=== PATIENT | male | born 1955 | race Caucasian/White ===

== ENCOUNTER 2018-08-18 04:16 | Emergency (ER) | payer OTHER ==
[2018-08-18 04:54] LABS: ADD MAN DIFF? NO; BASOPHIL # 0.1 10^3/ul (0.0-0.1); BASOPHILS % 0.5 % (0.0-2.0); EOSINOPHILS # 0.1 10^3/ul (0.0-0.5); HEMATOCRIT 42.6 % (42.0-52.0); HEMOGLOBIN 14.4 g/dl (14.0-18.0); LYMPHOCYTES # 2.7 10^3/ul (0.8-2.9); LYMPHOCYTES % 24.2 % (15.0-51.0); MEAN CORPUSCULAR HEMOGLOBIN 30.2 pg (29.0-33.0); MEAN CORPUSCULAR HGB CONC 33.8 g/dl (32.0-37.0); MEAN CORPUSCULAR VOLUME 89.3 fl (82.0-101.0); MEAN PLATELET VOLUME 9.5 fl (7.4-10.4); MONOCYTE # 0.6 10^3/ul (0.3-0.9); MONOCYTES % 5.3 % (0.0-11.0); NEUTROPHIL # 7.5 10^3/ul (1.6-7.5); NEUTROPHILS % 68.5 % (39.0-77.0); PLATELET COUNT 250 10^3/UL (140-415); RED BLOOD COUNT 4.77 10^6/ul (4.70-6.10); RED CELL DISTRIBUTION WIDTH 12.7 % (11.5-14.5)
[2018-08-18] MEDS: HYDROmorphONE 2 MG/ML SYG IV (04:57)
[2018-08-18] MEDS: ONDANSETRON 4 MG INJ IV (04:58)
[2018-08-18] MEDS ORDERED: DIPHENHYDRAMINE 50 MG INJ (05:01)
[2018-08-18 05:19] LABS: ALANINE AMINOTRANSFERASE 76 IU/L (13-69); ALBUMIN 4.3 g/dl (3.3-4.9); ALKALINE PHOSPHATASE 119 IU/L (42-121); ANION GAP 9 (5-13); ASPARTATE AMINO TRANSFERASE 64 IU/L (15-46); BILIRUBIN,INDIRECT 0.3 mg/dl (0-1.1); BILIRUBIN,TOTAL 0.3 mg/dl (0.2-1.3); BLOOD UREA NITROGEN 16 mg/dl (7-20); CALCIUM 9.6 mg/dl (8.4-10.2); CARBON DIOXIDE 22 mmol/L (21-31); CHLORIDE 109 mmol/L (97-110); CREATININE 0.83 mg/dl (0.61-1.24); Estimated GFR > 60 mL/min (>60); GLUCOSE 219 mg/dl (70-220); POTASSIUM 3.9 mmol/L (3.5-5.1); SODIUM 140 mmol/L (135-144)
[2018-08-18 05:20] LABS: INR 0.98; PROTIME 13.1 Sec (11.9-14.9)
[2018-08-18 05:21] LABS: PARTIAL THROMBOPLASTIN TIME 26.6 Sec (23.0-35.0)
[2018-08-18] MEDS: DIPHENHYDRAMINE 50 MG INJ IV (05:24)
[2018-08-18] MEDS: KETOROLAC 15 MG INJ IV (05:58)
[2018-08-18] MEDS: HYDROmorphONE 0.5 MG/0.5 ML SYG IV (05:59)
== END 2018-08-18 06:30 | disposition home or self-care (01) ==
LOC: E/R 04:16
DX: S30.0XXA Contusion of lower back and pelvis, initial encounter (principal); I10 Essential (primary) hypertension; V09.9XXA Pedestrian injured in unspecified transport accident, initial encounter; Z87.891 Personal history of nicotine dependence
CPT/HCPCS: 71045; 72125; 72128; 72131; 76705; 80048; 80076; 85025; 85610; 85730; 96374; 96375; 96376; 99285-25